=== PATIENT | female | born 1960 | race Caucasian/White ===

== ENCOUNTER → 2016-06-28 | Outpatient (CLI) | payer BC ==
[~2016-06-28] MED LIST: ARED PO; CALCIUM WITH V1 EAC1 PO; LOPID DPS600 MG PO; NORCO 5-325 TA1 EACH PO; XALATAN2.5 ML OU
== END | disposition home or self-care (01) ==
LOC: RAD.S 08:12
DX: Z12.31 Encounter for screening mammogram for malignant neoplasm of breast (principal); R92.1 Mammographic calcification found on diagnostic imaging of breast; Z80.3 Family history of malignant neoplasm of breast